=== PATIENT | male | born 1955 | race African-American/Black ===

== ENCOUNTER 2019-06-25 20:33 | Emergency (ER) | payer BC ==
[2019-06-25] MEDS ORDERED: Ketorolac Tromethamine 60 MG/2 ML VIAL ONE (20:59)
== END 2019-06-25 21:34 | disposition home or self-care (01) ==
LOC: ERS 20:33
DX: S16.1XXA Strain of muscle, fascia and tendon at neck level, initial encounter (principal); S29.012A Strain of muscle and tendon of back wall of thorax, initial encounter; V49.40XA Driver injured in collision with unspecified motor vehicles in traffic accident, initial encounter
CPT/HCPCS: 93005; 94760; 96372; J1885